=== PATIENT | female | born 1960 | race African-American/Black ===

== ENCOUNTER 2020-01-10 12:02 | Inpatient (IN) ==
[2020-01-10 12:34] LABS: Basophils % 0.3 % (0.0-0.8); Eosinophils % 0.1 % (0.00-10.9); Hematocrit 37.8 VOL% (35.7-47.0); Hemoglobin 12.3 GM/DL (12.0-16.0); Immature Granulocytes % 0.4 %; Immature Granulocytes Absolute 0.03 #; Lymphocytes # 0.5 10*3/uL (1.4-4.0); Lymphocytes % 7.4 % (21.3-54.2); Mean Corpuscular HGB Conc 32.5 GM/DL (32-36); Mean Corpuscular Volume 94.7 FL (87-102); Mean Platelet Volume 9.8 FL (9.6-12.0); Monocytes % 0.4 % (1.7-12.7); Neutrophils % 91.4 % (38.7-73.9); Platelet Count 240 T/CUMM (130-400); Red Blood Count 3.99 MC/CUMM (3.8-5.5); Red Cell Distribution Width 15.5 % (9.3-17.3); White Blood Count 6.8 T/CUMM (4-12)
[2020-01-10] MEDS ORDERED: ONDANSETRON 4 MG/2 ML VIAL IV STA (12:38)
[2020-01-10] MEDS ORDERED: SODIUM CHLORIDE 0.9% 1,000 ML IV STA (12:38)
[2020-01-10] MEDS ORDERED: HYDROmorphone 2 MG/1 ML VIAL IV STA (12:38)
[2020-01-10] MEDS ORDERED: MEROPENEM 2,000 MG in SODIUM CHLORIDE 0.9% 100 ML IV ONE (12:43)
[2020-01-10 12:48] LABS: Albumin 3.7 G/DL (3.4-5.0); Bilirubin,Total 0.8 MG/DL (0.2-1.0); Calcium 10.1 MG/DL (8.5-10.1); Osmolality,Calculated 273.8 MOS/KG (273-304); Total Protein 9.5 G/DL (6.4-8.3)
[2020-01-10] MEDS ORDERED: MEROPENEM 500 MG VIAL ONE (12:54)
[2020-01-10 13:25] LABS: Band Neutrophils 3 % (0-10); Lymphocytes 9 % (20-55); Segmented Neutrophils 87 % (50-85); Total Cells Counted 100
[2020-01-10 13:26] LABS: Hypochromasia Slight; Platelet Estimate Adequate
[2020-01-10] MEDS ORDERED: ACETAMINOPHEN 500 MG TABLET PO STA (13:59)
[2020-01-10] MEDS ORDERED: ACETAMINOPHEN 500 MG TABLET ONE (14:00)
[2020-01-10] MEDS ORDERED: SODIUM CHLORIDE 0.9% 1,000 ML IV SCH (14:00)
[2020-01-10 14:07] LABS: Bacteria,Urine Occasional /HPF (Few); Bilirubin,Urine Negative (Negative); Blood, Urine Small mg/dL (Negative); Glucose,Urine (UA) Negative (Negative); Ketones,Urine Negative (Negative); Mucus,Urine Occasional /LPF (Occasional); Nitrite,Urine Negative (Negative); Protein,Urine 30 MG/DL; RBC,Urine 3 /HPF (0-4); Squamous Epithelial Cell,Urine Occasional /HPF (0-10); Urine Appearance CLEAR (Clear); Urine Color Yellow (Yellow); Urine Specific Gravity 1.008 (1.001-1.035); Urine Urobilinogen < 2.0 EU/DL (0.2-1.0); WBC,Urine 32 /HPF (0-6)
[2020-01-10] MEDS ORDERED: AZTREONAM 1,000 MG VIAL ONE (14:07)
[2020-01-10 14:08] LABS: INR 1.1; PT Patient Result 11.9 SECS (9.8-11.9)
[2020-01-10] MEDS ORDERED: AZTREONAM 2,000 MG in SODIUM CHLORIDE 0.9% 100 ML IV ONE (14:30)
[2020-01-10] MEDS ORDERED: VANCOMYCIN INJ 2,500 MG in SODIUM CHLORIDE 0.9% 500 ML IV ONE (15:00)
[2020-01-10 15:18] LABS: ABG Base Excess -0.5 MMOL/L (-2.5-2.5); ABG HCO3 23.8 MMOL/L (20-26); ABG Oxygen Saturation 89.9 % (95-100); ABG PCO2 44.2 MM HG (35-48); ABG PH 7.363 (7.35-7.45); ABG PO2 63.9 MM HG (80-95); ABG TCO2 22.5 MMOL/L (23-27)
[2020-01-10] MEDS: SODIUM CHLORIDE 0.9% 1,000 ML IV STA ×2 (16:13→16:49)
[2020-01-10] MEDS ORDERED: SODIUM CHLORIDE 0.9% 1,800 ML IV ONE (16:25)
[2020-01-10] MEDS ORDERED: LEVOFLOXACIN INJ 500 MG in PREMIX 1 EACH IV ONE (16:29)
[2020-01-10] MEDS: LACTATED RINGERS 1,000 ML IV SCH (16:43)
[2020-01-10] MEDS ORDERED: GENTAMICIN INJ 160 MG in SODIUM CHLORIDE 0.9% 100 ML IV ONE (16:49)
[2020-01-10] MEDS ORDERED: GENTAMICIN 80 MG/2 ML VIAL ONE (16:58)
[2020-01-10] MEDS: HYDROCORTISONE 100 MG VIAL IV SCH (17:06)
[2020-01-10] MEDS ORDERED: WARFARIN 3 MG TABLET PO SCH (18:00)
[2020-01-10] MEDS ORDERED: PHENYLEPHRINE DRIP 40 MG/250 ML PREMIX IV ONE (18:32)
[2020-01-10] MEDS ORDERED: propofoL 200 MG/20 ML VIAL IV ONE (18:55)
[2020-01-10] MEDS ORDERED: LIDOCAINE 2% 5 ML VIAL ONE (18:55)
[2020-01-10] MEDS ORDERED: ETOMIDATE 40 MG/20 ML VIAL IV ONE (18:56)
[2020-01-10] MEDS ORDERED: PHENYLEPHRINE DRIP 20 MG/250 ML PREMIX IV ONE (18:56)
[2020-01-10] MEDS ORDERED: fentaNYL 100 MCG/2 ML VIAL ONE (18:56)
[2020-01-10] MEDS ORDERED: PHENYLEPHRINE 1 MG/10 ML SYRINGE IV ONE (18:56)
[2020-01-10] MEDS ORDERED: MIDAZOLAM 2 MG/2 ML VIAL ONE (18:56)
[2020-01-10] MEDS ORDERED: SEVOFLURANE 1 UNIT/15 MINUTE INH ONE (18:56)
[2020-01-10] MEDS ORDERED: SUCCINYLCHOLINE 200 MG/10 ML VIAL ONE (18:57)
[2020-01-10] MEDS ORDERED: ROCURONIUM 100 MG/10 ML VIAL IV ONE (18:57)
[2020-01-10] MEDS ORDERED: LACTATED RINGERS 1,000 ML IV ONE ×2 (18:57→22:20)
[2020-01-10] MEDS: PHENYLEPHRINE DRIP 40 MG/250 ML PREMIX IV PRN ×2 (19:00→22:50)
[2020-01-10] MEDS ORDERED: fentaNYL INJ 1,250 MCG in SODIUM CHLORIDE 0.9% 225 ML IV PRN (19:15)
[2020-01-10 19:39] LABS: ABG Base Excess -3.9 MMOL/L (-2.5-2.5); ABG Oxygen Saturation 98.4 % (95-100); ABG PH 7.326 (7.35-7.45); ABG PO2 152.3 MM HG (80-95); ABG TCO2 23.3 MMOL/L (23-27); Allen Test Positive; Pt O2 Delivery Device Ventilator
[2020-01-10] MEDS: NOREPINEPHRINE 8 MG in SODIUM CHLORIDE 0.9% 242 ML IV PRN (19:50)
[2020-01-10] MEDS ORDERED: AZTREONAM 2,000 MG in SODIUM CHLORIDE 0.9% 100 ML IV SCH (20:00)
[2020-01-10] MEDS ORDERED: MIDAZOLAM 2 MG/2 ML VIAL IV ONE ×2 (21:48→21:56)
[2020-01-10] MEDS ORDERED: MIDAZOLAM 10 MG/2 ML VIAL ONE (21:49)
[2020-01-10] MEDS: allopurinoL 100 MG TABLET PO SCH (23:24)
[2020-01-10] MEDS: POTASSIUM CHLORIDE 20 MEQ TABLET PO SCH (23:24)
[2020-01-11] MEDS: MEROPENEM 500 MG in SODIUM CHLORIDE 0.9% 100 ML IV SCH ×4 (00:20→17:10)
[2020-01-11] MEDS: LACTATED RINGERS 1,000 ML IV SCH ×4 (00:30→17:11)
[2020-01-11] MEDS: fentaNYL INJ 2,500 MCG in SODIUM CHLORIDE 0.9% 450 ML IV PRN ×3 (00:37→19:01)
[2020-01-11] MEDS: HYDROCORTISONE 100 MG VIAL IV SCH ×3 (01:23→16:45)
[2020-01-11] MEDS: PHENYLEPHRINE DRIP 40 MG/250 ML PREMIX IV PRN ×2 (02:55→11:01)
[2020-01-11 03:29] LABS: ABG Base Excess -4.1 MMOL/L (-2.5-2.5); ABG HCO3 21.1 MMOL/L (20-26); ABG Oxygen Saturation 99.6 % (95-100); ABG PCO2 55.7 MM HG (35-48); ABG PH 7.244 (7.35-7.45); Allen Test Positive; Pt O2 Delivery Device Ventilator
[2020-01-11] MEDS ORDERED: VANCOMYCIN INJ 2,000 MG in SODIUM CHLORIDE 0.9% 500 ML IV SCH (04:00)
[2020-01-11] MEDS: NOREPINEPHRINE 8 MG in SODIUM CHLORIDE 0.9% 242 ML IV PRN ×4 (04:50→21:31)
[2020-01-11 04:59] LABS: Basophils # 0.1 10*3/uL (0.0-0.2); Basophils % 0.3 % (0.0-0.8); Hematocrit 34.8 VOL% (35.7-47.0); Hemoglobin 11.5 GM/DL (12.0-16.0); Immature Granulocytes % 4.1 %; Immature Granulocytes Absolute 1.62 #; Lymphocytes # 0.7 10*3/uL (1.4-4.0); Lymphocytes % 1.8 % (21.3-54.2); Mean Corpuscular Volume 95.6 FL (87-102); Monocytes % 4.7 % (1.7-12.7); Neutrophils % 89.1 % (38.7-73.9); Platelet Count 204 T/CUMM (130-400); Red Blood Count 3.64 MC/CUMM (3.8-5.5); Red Cell Distribution Width 15.6 % (9.3-17.3); White Blood Count 39.8 T/CUMM (4-12)
[2020-01-11 05:09] LABS: INR 1.1; PT Patient Result 11.9 SECS (9.8-11.9)
[2020-01-11 05:19] LABS: Band Neutrophils 6 % (0-10); Lymphocytes 2 % (20-55); Myelocytes 1 %; Platelet Estimate Adequate; Segmented Neutrophils 84 % (50-85); Total Cells Counted 100
[2020-01-11 05:20] LABS: Hypochromasia 1+
[2020-01-11 05:24] LABS: Albumin 2.9 G/DL (3.4-5.0); Bilirubin,Total 0.8 MG/DL (0.2-1.0); Calcium 8.6 MG/DL (8.5-10.1); Osmolality,Calculated 283.3 MOS/KG (273-304)
[2020-01-11] MEDS ORDERED: PANTOPRAZOLE 40 MG VIAL IV ONE (08:43)
[2020-01-11] MEDS: ASPIRIN CHEW 81 MG TABLET PO SCH (08:44)
[2020-01-11] MEDS: FLUDROCORTISONE 0.1 MG TABLET PO SCH (08:45)
[2020-01-11] MEDS: CALCIUM (CARBONATE) 500 MG TABLET PO SCH (08:49)
[2020-01-11] MEDS: ASCORBIC ACID 500 MG TABLET PO SCH (08:49)
[2020-01-11] MEDS: CHOLECALCIFEROL 5,000 UNIT TABLET PO SCH (08:49)
[2020-01-11] MEDS: POTASSIUM CHLORIDE 20 MEQ TABLET PO SCH ×2 (08:49→21:16)
[2020-01-11] MEDS: allopurinoL 100 MG TABLET PO SCH ×2 (08:50→21:16)
[2020-01-11] MEDS: DULoxetine 30 MG CAPSULE PO SCH (08:50)
[2020-01-11] MEDS: PANTOPRAZOLE 40 MG VIAL IV SCH (08:51)
[2020-01-11] MEDS: TRIAMTERENE/HCTZ 37.5-25 MG CAPSULE PO SCH (08:52)
[2020-01-11] MEDS: SPIRONOLACTONE 50 MG TABLET PO SCH (08:52)
[2020-01-11] MEDS ORDERED: PANTOPRAZOLE 40 MG TABLET PO SCH (09:00)
[2020-01-12] MEDS: LACTATED RINGERS 1,000 ML IV SCH ×3 (00:34→16:31)
[2020-01-12] MEDS: MEROPENEM 500 MG in SODIUM CHLORIDE 0.9% 100 ML IV SCH ×4 (00:42→17:55)
[2020-01-12] MEDS: HYDROCORTISONE 100 MG VIAL IV SCH ×3 (00:43→16:30)
[2020-01-12] MEDS: fentaNYL INJ 2,500 MCG in SODIUM CHLORIDE 0.9% 450 ML IV PRN ×2 (03:01→16:29)
[2020-01-12 04:58] LABS: ABG Base Excess -0.9 MMOL/L (-2.5-2.5); ABG HCO3 23.5 MMOL/L (20-26); ABG Oxygen Saturation 98.3 % (95-100); ABG PH 7.409 (7.35-7.45); ABG PO2 134.2 MM HG (80-95); ABG TCO2 24.7 MMOL/L (23-27); Allen Test Positive; Pt O2 Delivery Device Ventilator
[2020-01-12 05:21] LABS: Basophils # 0.1 10*3/uL (0.0-0.2); Basophils % 0.3 % (0.0-0.8); Hematocrit 30.7 VOL% (35.7-47.0); Hemoglobin 10.4 GM/DL (12.0-16.0); Immature Granulocytes % 11.7 %; Immature Granulocytes Absolute 4.53 #; Lymphocytes # 0.8 10*3/uL (1.4-4.0); Mean Corpuscular HGB Conc 33.9 GM/DL (32-36); Mean Corpuscular Volume 94.2 FL (87-102); Mean Platelet Volume 10.6 FL (9.6-12.0); Platelet Count 164 T/CUMM (130-400); Red Blood Count 3.26 MC/CUMM (3.8-5.5); Red Cell Distribution Width 15.7 % (9.3-17.3); White Blood Count 38.8 T/CUMM (4-12)
[2020-01-12 05:37] LABS: Albumin 2.4 G/DL (3.4-5.0); Bilirubin,Total 0.9 MG/DL (0.2-1.0); Calcium 9.4 MG/DL (8.5-10.1); Osmolality,Calculated 294.3 MOS/KG (273-304); Total Protein 7.2 G/DL (6.4-8.3)
[2020-01-12 05:44] LABS: Band Neutrophils 7 % (0-10); Hypochromasia 1+; Lymphocytes 4 % (20-55); Microcytosis Slight; Platelet Estimate Adequate; Segmented Neutrophils 87 % (50-85); Total Cells Counted 100
[2020-01-12] MEDS: NOREPINEPHRINE 8 MG in SODIUM CHLORIDE 0.9% 242 ML IV PRN (07:58)
[2020-01-12] MEDS: TRIAMTERENE/HCTZ 37.5-25 MG CAPSULE PO SCH (08:34)
[2020-01-12] MEDS: DULoxetine 30 MG CAPSULE PO SCH (08:34)
[2020-01-12] MEDS: CHOLECALCIFEROL 5,000 UNIT TABLET PO SCH (08:34)
[2020-01-12] MEDS: POTASSIUM CHLORIDE 20 MEQ TABLET PO SCH ×2 (08:35→20:56)
[2020-01-12] MEDS: allopurinoL 100 MG TABLET PO SCH ×2 (08:35→20:55)
[2020-01-12] MEDS: FLUDROCORTISONE 0.1 MG TABLET PO SCH (08:35)
[2020-01-12] MEDS: SPIRONOLACTONE 50 MG TABLET PO SCH (08:36)
[2020-01-12] MEDS: CALCIUM (CARBONATE) 500 MG TABLET PO SCH (08:36)
[2020-01-12] MEDS: ASCORBIC ACID 500 MG TABLET PO SCH (08:36)
[2020-01-12] MEDS: PANTOPRAZOLE 40 MG VIAL IV SCH (08:38)
[2020-01-12] MEDS: ASPIRIN CHEW 81 MG TABLET PO SCH (08:47)
[2020-01-12] MEDS: ENOXAPARIN 40 MG/0.4 ML SYRINGE SUBCUT SCH (10:10)
[2020-01-12] MEDS: PHENOL 1.4% THROAT SPRAY 177 ML BOTTLE PO PRN (10:10)
[2020-01-12] MEDS ORDERED: DEXTROSE 50% 25 GM/50 ML VIAL IV PRN (12:28)
[2020-01-12] MEDS ORDERED: GLUCAGON 1 MG VIAL IM PRN (12:28)
[2020-01-12] MEDS: INSULIN REGULAR 100 UNIT/ML SUBCUT SCH (18:08)
[2020-01-13] MEDS: LACTATED RINGERS 1,000 ML IV SCH ×3 (00:01→13:00)
[2020-01-13] MEDS: INSULIN REGULAR 100 UNIT/ML SUBCUT SCH ×4 (00:13→18:00)
[2020-01-13] MEDS: MEROPENEM 500 MG in SODIUM CHLORIDE 0.9% 100 ML IV SCH ×4 (00:14→17:55)
[2020-01-13] MEDS: HYDROCORTISONE 100 MG VIAL IV SCH ×4 (01:12→16:15)
[2020-01-13 04:11] LABS: Basophils # 0.1 10*3/uL (0.0-0.2); Basophils % 0.3 % (0.0-0.8); Hemoglobin 9.7 GM/DL (12.0-16.0); Immature Granulocytes % 4.9 %; Immature Granulocytes Absolute 1.94 #; Lymphocytes # 1.1 10*3/uL (1.4-4.0); Lymphocytes % 2.9 % (21.3-54.2); Mean Corpuscular HGB Conc 33.4 GM/DL (32-36); Mean Corpuscular Volume 93.5 FL (87-102); Mean Platelet Volume 10.5 FL (9.6-12.0); Monocytes % 2.1 % (1.7-12.7); Neutrophils % 89.8 % (38.7-73.9); Platelet Count 146 T/CUMM (130-400); Red Cell Distribution Width 15.6 % (9.3-17.3); White Blood Count 39.2 T/CUMM (4-12)
[2020-01-13 04:32] LABS: Albumin 2.2 G/DL (3.4-5.0); Bilirubin,Total 0.4 MG/DL (0.2-1.0); Calcium 9.6 MG/DL (8.5-10.1); Osmolality,Calculated 299.1 MOS/KG (273-304); Total Protein 6.9 G/DL (6.4-8.3)
[2020-01-13 04:34] LABS: Prealbumin 7.3 MG/DL (20-40)
[2020-01-13 04:44] LABS: Anisocytosis Slight; Band Neutrophils 3 % (0-10); Eosinophils 1 % (0-10); Lymphocytes 2 % (20-55); Macrocytosis Slight; Platelet Estimate Adequate; Segmented Neutrophils 94 % (50-85); Total Cells Counted 100
[2020-01-13 04:45] LABS: ABG Base Excess 2.8 MMOL/L (-2.5-2.5); ABG HCO3 26.9 MMOL/L (20-26); ABG Oxygen Saturation 98.5 % (95-100); ABG PCO2 40.4 MM HG (35-48); ABG PH 7.436 (7.35-7.45); ABG TCO2 24.6 MMOL/L (23-27); Allen Test Positive; Pt O2 Delivery Device Ventilator
[2020-01-13] MEDS: fentaNYL INJ 2,500 MCG in SODIUM CHLORIDE 0.9% 450 ML IV PRN (08:05)
[2020-01-13] MEDS: POTASSIUM CHLORIDE 20 MEQ TABLET PO SCH (09:00)
[2020-01-13] MEDS: allopurinoL 100 MG TABLET PO SCH ×2 (09:00→20:44)
[2020-01-13] MEDS: ENOXAPARIN 40 MG/0.4 ML SYRINGE SUBCUT SCH (09:10)
[2020-01-13] MEDS: PANTOPRAZOLE 40 MG VIAL IV SCH (09:10)
[2020-01-13] MEDS: PHENOL 1.4% THROAT SPRAY 177 ML BOTTLE PO PRN (12:30)
[2020-01-13] MEDS: ASPIRIN CHEW 81 MG TABLET PO SCH (13:00)
[2020-01-13] MEDS: CHOLECALCIFEROL 5,000 UNIT TABLET PO SCH (13:00)
[2020-01-13] MEDS: CALCIUM (CARBONATE) 500 MG TABLET PO SCH (13:00)
[2020-01-13] MEDS: ASCORBIC ACID 500 MG TABLET PO SCH (13:00)
[2020-01-13] MEDS: DULoxetine 30 MG CAPSULE PO SCH (13:00)
[2020-01-13] MEDS: FLUDROCORTISONE 0.1 MG TABLET PO SCH (13:00)
[2020-01-13] MEDS: BENZONATATE 100 MG CAPSULE PO SCH ×2 (14:50→20:44)
[2020-01-13] MEDS: POTASSIUM CHLORIDE 20 MEQ/15 ML UDCUP PER TUBE SCH (20:44)
[2020-01-14] MEDS: MEROPENEM 500 MG in SODIUM CHLORIDE 0.9% 100 ML IV SCH ×4 (01:16→17:55)
[2020-01-14] MEDS: INSULIN REGULAR 100 UNIT/ML SUBCUT SCH ×3 (01:16→12:00)
[2020-01-14] MEDS: HYDROCORTISONE 100 MG VIAL IV SCH ×3 (02:30→17:55)
[2020-01-14 03:13] LABS: ABG Base Excess 4.5 MMOL/L (-2.5-2.5); ABG HCO3 28.5 MMOL/L (20-26); ABG Oxygen Saturation 99.3 % (95-100); ABG PCO2 37.6 MM HG (35-48); ABG PH 7.482 (7.35-7.45); ABG TCO2 25.4 MMOL/L (23-27)
[2020-01-14 04:42] LABS: Basophils # 0.1 10*3/uL (0.0-0.2); Basophils % 0.3 % (0.0-0.8); Eosinophils # 0.1 10*3/uL (0.0-0.87); Eosinophils % 0.3 % (0.00-10.9); Hemoglobin 9.9 GM/DL (12.0-16.0); Immature Granulocytes Absolute 0.25 #; Lymphocytes % 7.8 % (21.3-54.2); Mean Corpuscular Volume 92.9 FL (87-102); Monocytes % 4.8 % (1.7-12.7); NRBC # 0.02 10*3/uL; Neutrophils % 85.8 % (38.7-73.9); Platelet Count 152 T/CUMM (130-400); Red Blood Count 3.23 MC/CUMM (3.8-5.5); Red Cell Distribution Width 15.2 % (9.3-17.3); White Blood Count 26.1 T/CUMM (4-12)
[2020-01-14 05:18] LABS: Band Neutrophils 6 % (0-10); Lymphocytes 12 % (20-55); Nucleated Red Blood Cells 1 (0-5); Platelet Estimate Normal; Segmented Neutrophils 81 % (50-85); Total Cells Counted 100
[2020-01-14 05:20] LABS: Albumin 2.2 G/DL (3.4-5.0); Bilirubin,Total 0.4 MG/DL (0.2-1.0); Calcium 9.5 MG/DL (8.5-10.1); Osmolality,Calculated 302.9 MOS/KG (273-304); Total Protein 6.9 G/DL (6.4-8.3)
[2020-01-14] MEDS: LACTATED RINGERS 1,000 ML IV SCH (07:00)
[2020-01-14] MEDS: PANTOPRAZOLE 40 MG VIAL IV SCH (08:15)
[2020-01-14] MEDS: SODIUM CHLORIDE 0.45% 1,000 ML IV SCH ×2 (08:15→23:44)
[2020-01-14] MEDS: CHOLECALCIFEROL 5,000 UNIT TABLET PO SCH (08:20)
[2020-01-14] MEDS: BENZONATATE 100 MG CAPSULE PO SCH ×3 (08:20→22:17)
[2020-01-14] MEDS: CALCIUM (CARBONATE) 500 MG TABLET PO SCH (08:20)
[2020-01-14] MEDS: POTASSIUM CHLORIDE 20 MEQ/15 ML UDCUP PER TUBE SCH (08:20)
[2020-01-14] MEDS: ASPIRIN CHEW 81 MG TABLET PO SCH (08:20)
[2020-01-14] MEDS: allopurinoL 100 MG TABLET PO SCH ×2 (08:20→22:16)
[2020-01-14] MEDS: ASCORBIC ACID 500 MG TABLET PO SCH (08:20)
[2020-01-14] MEDS: DULoxetine 30 MG CAPSULE PO SCH (08:20)
[2020-01-14] MEDS: FLUDROCORTISONE 0.1 MG TABLET PO SCH (08:20)
[2020-01-14] MEDS: ENOXAPARIN 40 MG/0.4 ML SYRINGE SUBCUT SCH (08:25)
[2020-01-14 10:01] LABS: ABG Base Excess 3.1 MMOL/L (-2.5-2.5); ABG HCO3 29.3 MMOL/L (20-26); ABG Oxygen Saturation 97.2 % (95-100); ABG PCO2 52.4 MM HG (35-48); ABG PH 7.365 (7.35-7.45); ABG PO2 108.4 MM HG (80-95); ABG TCO2 30.9 MMOL/L (23-27)
[2020-01-14] MEDS: ALBUTEROL/IPRATROPIUM 3 ML NEB RESP TX SCH ×4 (10:21→23:58)
[2020-01-14 10:41] LABS: INR 1.2; PT Patient Result 12.4 SECS (9.8-11.9)
[2020-01-14 11:35] LABS: ABG Base Excess 3.3 MMOL/L (-2.5-2.5); ABG HCO3 27.3 MMOL/L (20-26); ABG Oxygen Saturation 94.2 % (95-100); ABG PCO2 54.7 MM HG (35-48); ABG PH 7.348 (7.35-7.45); ABG PO2 78.9 MM HG (80-95); ABG TCO2 27.3 MMOL/L (23-27)
[2020-01-14] MEDS: WARFARIN 7.5 MG TABLET PO SCH (17:55)
[2020-01-14] MEDS: POTASSIUM CHLORIDE 20 MEQ TABLET PO SCH (22:17)
[2020-01-15] MEDS: HYDROCORTISONE 100 MG VIAL IV SCH ×3 (00:59→20:32)
[2020-01-15] MEDS: MEROPENEM 500 MG in SODIUM CHLORIDE 0.9% 100 ML IV SCH ×4 (00:59→18:12)
[2020-01-15] MEDS: ALBUTEROL/IPRATROPIUM 3 ML NEB RESP TX SCH ×4 (03:33→19:58)
[2020-01-15 04:54] LABS: Basophils # 0.1 10*3/uL (0.0-0.2); Basophils % 0.4 % (0.0-0.8); Eosinophils # 0.1 10*3/uL (0.0-0.87); Eosinophils % 0.4 % (0.00-10.9); Hematocrit 31.2 VOL% (35.7-47.0); Hemoglobin 10.1 GM/DL (12.0-16.0); Immature Granulocytes % 5.5 %; Immature Granulocytes Absolute 0.93 #; Lymphocytes % 11.7 % (21.3-54.2); Mean Corpuscular HGB Conc 32.4 GM/DL (32-36); Mean Corpuscular Volume 94.8 FL (87-102); Mean Platelet Volume 11.6 FL (9.6-12.0); Monocytes % 6.2 % (1.7-12.7); Neutrophils % 75.8 % (38.7-73.9); Platelet Count 152 T/CUMM (130-400); Red Blood Count 3.29 MC/CUMM (3.8-5.5); Red Cell Distribution Width 15.2 % (9.3-17.3); White Blood Count 16.8 T/CUMM (4-12)
[2020-01-15 05:14] LABS: Eosinophils 2 % (0-10); Lymphocytes 13 % (20-55); Segmented Neutrophils 81 % (50-85); Total Cells Counted 100
[2020-01-15 05:15] LABS: Hypochromasia 1+; Microcytosis Slight; Platelet Estimate Adequate
[2020-01-15 05:23] LABS: Albumin 2.2 G/DL (3.4-5.0); Bilirubin,Total 0.8 MG/DL (0.2-1.0); Calcium 9.2 MG/DL (8.5-10.1); Osmolality,Calculated 294.4 MOS/KG (273-304)
[2020-01-15 05:45] LABS: INR 1.2; PT Patient Result 12.6 SECS (9.8-11.9)
[2020-01-15] MEDS: PANTOPRAZOLE 40 MG VIAL IV SCH (08:38)
[2020-01-15] MEDS: allopurinoL 100 MG TABLET PO SCH ×2 (08:40→20:32)
[2020-01-15] MEDS: BENZONATATE 100 MG CAPSULE PO SCH ×3 (08:40→20:32)
[2020-01-15] MEDS: ASCORBIC ACID 500 MG TABLET PO SCH (08:40)
[2020-01-15] MEDS: ASPIRIN CHEW 81 MG TABLET PO SCH (08:40)
[2020-01-15] MEDS: DULoxetine 30 MG CAPSULE PO SCH (08:41)
[2020-01-15] MEDS: POTASSIUM CHLORIDE 20 MEQ TABLET PO SCH ×2 (08:41→20:33)
[2020-01-15] MEDS: FLUDROCORTISONE 0.1 MG TABLET PO SCH (08:41)
[2020-01-15] MEDS: CALCIUM (CARBONATE) 500 MG TABLET PO SCH (08:41)
[2020-01-15] MEDS: CHOLECALCIFEROL 5,000 UNIT TABLET PO SCH (08:43)
[2020-01-15] MEDS ORDERED: ALBUTEROL/IPRATROPIUM 3 ML NEB RESP TX PRN (09:08)
[2020-01-15] MEDS: ENOXAPARIN 40 MG/0.4 ML SYRINGE SUBCUT SCH (11:39)
[2020-01-15] MEDS: SODIUM CHLORIDE 0.45% 1,000 ML IV SCH ×2 (11:53→14:30)
[2020-01-15] MEDS: LIDOCAINE 2% TOP JELLY 5 ML TUBE TOP SCH ×3 (12:15→20:35)
[2020-01-15] MEDS: WARFARIN 7.5 MG TABLET PO SCH (18:12)
[2020-01-16] MEDS: SODIUM CHLORIDE 0.45% 1,000 ML IV SCH (00:30)
[2020-01-16] MEDS: MEROPENEM 500 MG in SODIUM CHLORIDE 0.9% 100 ML IV SCH ×4 (00:30→17:08)
[2020-01-16] MEDS: ACETAMINOPHEN 325 MG TABLET PO PRN (00:32)
[2020-01-16] MEDS: ALBUTEROL/IPRATROPIUM 3 ML NEB RESP TX SCH ×4 (01:30→20:15)
[2020-01-16 05:10] LABS: Basophils # 0.1 10*3/uL (0.0-0.2); Basophils % 0.5 % (0.0-0.8); Eosinophils # 0.3 10*3/uL (0.0-0.87); Eosinophils % 2.6 % (0.00-10.9); Hematocrit 29.5 VOL% (35.7-47.0); Hemoglobin 10.1 GM/DL (12.0-16.0); Immature Granulocytes % 11.7 %; Immature Granulocytes Absolute 1.38 #; Lymphocytes # 2.4 10*3/uL (1.4-4.0); Lymphocytes % 19.9 % (21.3-54.2); Mean Corpuscular HGB Conc 34.2 GM/DL (32-36); Mean Corpuscular Volume 90.5 FL (87-102); Monocytes % 9.5 % (1.7-12.7); NRBC # 0.02 10*3/uL; Neutrophils % 55.8 % (38.7-73.9); Platelet Count 167 T/CUMM (130-400); Red Blood Count 3.26 MC/CUMM (3.8-5.5); Red Cell Distribution Width 14.8 % (9.3-17.3); White Blood Count 11.8 T/CUMM (4-12)
[2020-01-16 05:16] LABS: INR 1.7; PT Patient Result 17.8 SECS (9.8-11.9)
[2020-01-16 05:35] LABS: Alanine Aminotransferase 15 U/L (13-56); Albumin 2.2 G/DL (3.4-5.0); Alkaline Phosphatase 102 U/L (45-117); Aspartate Amino Transferase 12 U/L (0-37); Bilirubin,Total < 0.39 MG/DL (0.2-1.0); Blood Urea Nitrogen 13 MG/DL (7-18); Calcium 8.9 MG/DL (8.5-10.1); Estimated Glom Filtration Rate 195 ML/MIN; Glucose 87 MG/DL (74-106); Osmolality,Calculated 284.8 MOS/KG (273-304); Total Protein 6.6 G/DL (6.4-8.3)
[2020-01-16 07:22] LABS: Anisocytosis Slight; Band Neutrophils 7 % (0-10); Eosinophils 1 % (0-10); Lymphocytes 28 % (20-55); Metamyelocytes 3 %; Nucleated Red Blood Cells 1 (0-5); Platelet Estimate Normal; Segmented Neutrophils 53 % (50-85); Total Cells Counted 100
[2020-01-16 07:23] LABS: Macrocytosis Slight
[2020-01-16] MEDS ORDERED: POTASSIUM CHLORIDE 20 MEQ TABLET PO ONE (07:57)
[2020-01-16] MEDS: POTASSIUM CHLORIDE 20 MEQ TABLET PO SCH ×2 (08:22→21:19)
[2020-01-16] MEDS: FLUDROCORTISONE 0.1 MG TABLET PO SCH (08:22)
[2020-01-16] MEDS: BENZONATATE 100 MG CAPSULE PO SCH ×3 (08:22→21:19)
[2020-01-16] MEDS: CALCIUM (CARBONATE) 500 MG TABLET PO SCH (08:22)
[2020-01-16] MEDS: DULoxetine 30 MG CAPSULE PO SCH (08:22)
[2020-01-16] MEDS: ASCORBIC ACID 500 MG TABLET PO SCH (08:22)
[2020-01-16] MEDS: allopurinoL 100 MG TABLET PO SCH ×2 (08:23→21:19)
[2020-01-16] MEDS: ASPIRIN CHEW 81 MG TABLET PO SCH (08:23)
[2020-01-16] MEDS: CHOLECALCIFEROL 5,000 UNIT TABLET PO SCH (08:23)
[2020-01-16] MEDS: PANTOPRAZOLE 40 MG VIAL IV SCH (08:24)
[2020-01-16] MEDS: HYDROCORTISONE 100 MG VIAL IV SCH ×2 (08:24→21:20)
[2020-01-16] MEDS: LIDOCAINE 2% TOP JELLY 5 ML TUBE TOP SCH ×4 (08:27→21:21)
[2020-01-16] MEDS: PANTOPRAZOLE 40 MG TABLET PO SCH (08:30)
[2020-01-16] MEDS: ENOXAPARIN 40 MG/0.4 ML SYRINGE SUBCUT SCH (09:34)
[2020-01-16] MEDS: FUROSEMIDE 40 MG/4 ML VIAL IV SCH (17:06)
[2020-01-16] MEDS: WARFARIN 7.5 MG TABLET PO SCH (17:08)
[2020-01-17] MEDS: MEROPENEM 500 MG in SODIUM CHLORIDE 0.9% 100 ML IV SCH ×5 (00:01→23:25)
[2020-01-17] MEDS: ALBUTEROL/IPRATROPIUM 3 ML NEB RESP TX SCH ×4 (00:54→20:24)
[2020-01-17 06:38] LABS: Basophils # 0.1 10*3/uL (0.0-0.2); Basophils % 0.5 % (0.0-0.8); Eosinophils # 0.3 10*3/uL (0.0-0.87); Eosinophils % 2.4 % (0.00-10.9); Hematocrit 29.5 VOL% (35.7-47.0); Immature Granulocytes % 8.7 %; Immature Granulocytes Absolute 1.04 #; Lymphocytes # 2.9 10*3/uL (1.4-4.0); Lymphocytes % 23.9 % (21.3-54.2); Mean Corpuscular HGB Conc 33.9 GM/DL (32-36); Mean Corpuscular Volume 91.3 FL (87-102); Mean Platelet Volume 10.9 FL (9.6-12.0); Monocytes % 9.9 % (1.7-12.7); Neutrophils % 54.6 % (38.7-73.9); Platelet Count 197 T/CUMM (130-400); Red Blood Count 3.23 MC/CUMM (3.8-5.5); Red Cell Distribution Width 14.6 % (9.3-17.3); White Blood Count 11.9 T/CUMM (4-12)
[2020-01-17 07:00] LABS: Albumin 2.3 G/DL (3.4-5.0); Total Protein 6.7 G/DL (6.4-8.3)
[2020-01-17 07:15] LABS: Osmolality,Calculated 280.1 MOS/KG (273-304)
[2020-01-17] MEDS ORDERED: POTASSIUM CHLORIDE 20 MEQ TABLET PO ONE (07:56)
[2020-01-17 08:05] LABS: Band Neutrophils 5 % (0-10); Eosinophils 5 % (0-10); Lymphocytes 34 % (20-55); Nucleated Red Blood Cells 2 (0-5); Platelet Estimate Normal; Segmented Neutrophils 50 % (50-85); Total Cells Counted 100
[2020-01-17 08:06] LABS: Anisocytosis 1+; Macrocytosis Slight
[2020-01-17] MEDS ORDERED: POTASSIUM CHLORIDE 20 MEQ TABLET PO PRN (08:11)
[2020-01-17 08:16] LABS: INR 2.1; PT Patient Result 21.6 SECS (9.8-11.9)
[2020-01-17] MEDS: LIDOCAINE 2% TOP JELLY 5 ML TUBE TOP SCH ×4 (08:32→20:04)
[2020-01-17] MEDS ORDERED: MAGNESIUM HYDROXIDE SUSP 30 ML UDCUP PO PRN (08:55)
[2020-01-17] MEDS: CHOLECALCIFEROL 5,000 UNIT TABLET PO SCH (10:26)
[2020-01-17] MEDS: BENZONATATE 100 MG CAPSULE PO SCH ×3 (10:26→20:51)
[2020-01-17] MEDS: ASPIRIN CHEW 81 MG TABLET PO SCH (10:26)
[2020-01-17] MEDS: CALCIUM (CARBONATE) 500 MG TABLET PO SCH (10:26)
[2020-01-17] MEDS: allopurinoL 100 MG TABLET PO SCH ×2 (10:27→20:51)
[2020-01-17] MEDS: ASCORBIC ACID 500 MG TABLET PO SCH (10:27)
[2020-01-17] MEDS: FLUDROCORTISONE 0.1 MG TABLET PO SCH (10:27)
[2020-01-17] MEDS: POTASSIUM CHLORIDE 20 MEQ TABLET PO SCH ×2 (10:27→20:51)
[2020-01-17] MEDS: DULoxetine 30 MG CAPSULE PO SCH (10:27)
[2020-01-17] MEDS: PANTOPRAZOLE 40 MG TABLET PO SCH (10:27)
[2020-01-17] MEDS: HYDROCORTISONE 100 MG VIAL IV SCH (10:28)
[2020-01-17] MEDS: FUROSEMIDE 40 MG/4 ML VIAL IV SCH (10:28)
[2020-01-17] MEDS: WARFARIN 7.5 MG TABLET PO SCH (18:16)
[2020-01-18] MEDS: ALBUTEROL/IPRATROPIUM 3 ML NEB RESP TX SCH ×4 (00:44→19:49)
[2020-01-18] MEDS: ACETYLCYSTEINE 20% 800 MG/4 ML VIAL RESP TX SCH ×3 (00:44→14:20)
[2020-01-18] MEDS: MEROPENEM 500 MG in SODIUM CHLORIDE 0.9% 100 ML IV SCH ×3 (06:16→17:15)
[2020-01-18 06:53] LABS: Basophils # 0.1 10*3/uL (0.0-0.2); Basophils % 0.6 % (0.0-0.8); Eosinophils # 0.4 10*3/uL (0.0-0.87); Eosinophils % 3.3 % (0.00-10.9); Hematocrit 31.1 VOL% (35.7-47.0); Hemoglobin 10.4 GM/DL (12.0-16.0); Immature Granulocytes % 5.7 %; Immature Granulocytes Absolute 0.61 #; Lymphocytes % 27.6 % (21.3-54.2); Mean Corpuscular HGB Conc 33.4 GM/DL (32-36); Mean Corpuscular Volume 90.9 FL (87-102); Mean Platelet Volume 11.2 FL (9.6-12.0); Monocytes % 9.3 % (1.7-12.7); Neutrophils % 53.5 % (38.7-73.9); Platelet Count 202 T/CUMM (130-400); Red Blood Count 3.42 MC/CUMM (3.8-5.5); White Blood Count 10.7 T/CUMM (4-12)
[2020-01-18 06:59] LABS: INR 2.1; PT Patient Result 21.5 SECS (9.8-11.9)
[2020-01-18 07:16] LABS: Albumin 2.4 G/DL (3.4-5.0); Bilirubin,Total 1.4 MG/DL (0.2-1.0); Osmolality,Calculated 280.1 MOS/KG (273-304); Total Protein 6.8 G/DL (6.4-8.3)
[2020-01-18 07:24] LABS: Band Neutrophils 3 % (0-10); Eosinophils 3 % (0-10); Lymphocytes 34 % (20-55); Platelet Estimate Normal; Segmented Neutrophils 52 % (50-85); Total Cells Counted 100
[2020-01-18 07:25] LABS: Anisocytosis Slight; Macrocytosis Slight; Target Cells Few
[2020-01-18] MEDS: FUROSEMIDE 40 MG/4 ML VIAL IV SCH (09:50)
[2020-01-18] MEDS: DULoxetine 30 MG CAPSULE PO SCH (09:55)
[2020-01-18] MEDS: POTASSIUM CHLORIDE 20 MEQ TABLET PO SCH ×5 (09:55→21:04)
[2020-01-18] MEDS: HYDROCORTISONE 100 MG VIAL IV SCH (09:55)
[2020-01-18] MEDS: FLUDROCORTISONE 0.1 MG TABLET PO SCH (10:09)
[2020-01-18] MEDS: BENZONATATE 100 MG CAPSULE PO SCH ×3 (10:10→21:04)
[2020-01-18] MEDS: allopurinoL 100 MG TABLET PO SCH ×2 (10:10→21:05)
[2020-01-18] MEDS: CHOLECALCIFEROL 5,000 UNIT TABLET PO SCH (10:10)
[2020-01-18] MEDS: ASCORBIC ACID 500 MG TABLET PO SCH (10:11)
[2020-01-18] MEDS: CALCIUM (CARBONATE) 500 MG TABLET PO SCH (10:11)
[2020-01-18] MEDS: PANTOPRAZOLE 40 MG TABLET PO SCH (10:13)
[2020-01-18] MEDS: ASPIRIN CHEW 81 MG TABLET PO SCH (10:13)
[2020-01-18] MEDS: SPIRONOLACTONE 50 MG TABLET PO SCH (10:15)
[2020-01-18] MEDS: LIDOCAINE 2% TOP JELLY 5 ML TUBE TOP SCH ×4 (10:23→21:05)
[2020-01-18] MEDS: ACETAMINOPHEN 325 MG TABLET PO PRN ×2 (11:35→21:13)
[2020-01-18] MEDS ORDERED: ZINC OXIDE PASTE 113 GM TUBE TOP PRN (11:47)
[2020-01-19] MEDS: ALBUTEROL/IPRATROPIUM 3 ML NEB RESP TX SCH ×5 (00:25→23:50)
[2020-01-19] MEDS: ACETYLCYSTEINE 20% 800 MG/4 ML VIAL RESP TX SCH ×2 (00:25→07:45)
[2020-01-19] MEDS: MEROPENEM 500 MG in SODIUM CHLORIDE 0.9% 100 ML IV SCH ×4 (01:13→18:55)
[2020-01-19 05:49] LABS: Basophils # 0.1 10*3/uL (0.0-0.2); Basophils % 0.4 % (0.0-0.8); Eosinophils # 0.3 10*3/uL (0.0-0.87); Eosinophils % 2.6 % (0.00-10.9); Hematocrit 28.5 VOL% (35.7-47.0); Hemoglobin 9.5 GM/DL (12.0-16.0); Immature Granulocytes % 5.1 %; Immature Granulocytes Absolute 0.59 #; Lymphocytes # 3.1 10*3/uL (1.4-4.0); Mean Corpuscular HGB Conc 33.3 GM/DL (32-36); Mean Corpuscular Volume 91.3 FL (87-102); Monocytes % 8.9 % (1.7-12.7); Platelet Count 240 T/CUMM (130-400); Red Blood Count 3.12 MC/CUMM (3.8-5.5); Red Cell Distribution Width 15.1 % (9.3-17.3); White Blood Count 11.6 T/CUMM (4-12)
[2020-01-19 06:01] LABS: INR 1.8; PT Patient Result 18.3 SECS (9.8-11.9)
[2020-01-19 06:15] LABS: Eosinophils 4 % (0-10); Hypochromasia 1+; Lymphocytes 26 % (20-55); Platelet Estimate Adequate; Segmented Neutrophils 65 % (50-85); Total Cells Counted 100
[2020-01-19 06:16] LABS: Macrocytosis Slight
[2020-01-19 06:22] LABS: Albumin 2.4 G/DL (3.4-5.0); Bilirubin,Total 0.6 MG/DL (0.2-1.0); Osmolality,Calculated 280.1 MOS/KG (273-304); Total Protein 6.6 G/DL (6.4-8.3)
[2020-01-19] MEDS ORDERED: ENOXAPARIN 40 MG/0.4 ML SYRINGE SUBCUT SCH (09:00)
[2020-01-19] MEDS: HYDROCORTISONE 100 MG VIAL IV SCH ×2 (10:37)
[2020-01-19] MEDS: ACETAMINOPHEN 325 MG TABLET PO PRN ×2 (10:37→21:12)
[2020-01-19] MEDS: DULoxetine 30 MG CAPSULE PO SCH (10:38)
[2020-01-19] MEDS: CHOLECALCIFEROL 5,000 UNIT TABLET PO SCH (10:38)
[2020-01-19] MEDS: POTASSIUM CHLORIDE 20 MEQ TABLET PO SCH ×6 (10:38→21:12)
[2020-01-19] MEDS: FLUDROCORTISONE 0.1 MG TABLET PO SCH (10:38)
[2020-01-19] MEDS: SPIRONOLACTONE 50 MG TABLET PO SCH (10:38)
[2020-01-19] MEDS: ASCORBIC ACID 500 MG TABLET PO SCH (10:39)
[2020-01-19] MEDS: ASPIRIN CHEW 81 MG TABLET PO SCH (10:39)
[2020-01-19] MEDS: BENZONATATE 100 MG CAPSULE PO SCH ×3 (10:39→21:12)
[2020-01-19] MEDS: allopurinoL 100 MG TABLET PO SCH ×2 (10:39→21:13)
[2020-01-19] MEDS: CALCIUM (CARBONATE) 500 MG TABLET PO SCH (10:40)
[2020-01-19] MEDS: PANTOPRAZOLE 40 MG TABLET PO SCH (10:40)
[2020-01-19] MEDS: TRIAMTERENE/HCTZ 37.5-25 MG CAPSULE PO SCH ×2 (10:45→21:12)
[2020-01-19] MEDS: LIDOCAINE 2% TOP JELLY 5 ML TUBE TOP SCH ×4 (11:03→21:12)
[2020-01-19] MEDS ORDERED: FLUDROCORTISONE 0.1 MG TABLET PO SCH (16:00)
[2020-01-19] MEDS: WARFARIN 7.5 MG TABLET PO SCH (18:55)
[2020-01-20] MEDS: MEROPENEM 500 MG in SODIUM CHLORIDE 0.9% 100 ML IV SCH ×3 (00:10→11:44)
[2020-01-20 06:16] LABS: Basophils # 0.1 10*3/uL (0.0-0.2); Basophils % 0.4 % (0.0-0.8); Eosinophils # 0.3 10*3/uL (0.0-0.87); Eosinophils % 2.6 % (0.00-10.9); Hematocrit 30.2 VOL% (35.7-47.0); Hemoglobin 10.4 GM/DL (12.0-16.0); Immature Granulocytes % 2.2 %; Immature Granulocytes Absolute 0.27 #; Lymphocytes # 2.9 10*3/uL (1.4-4.0); Lymphocytes % 23.3 % (21.3-54.2); Mean Corpuscular HGB Conc 34.4 GM/DL (32-36); Mean Corpuscular Volume 89.1 FL (87-102); Mean Platelet Volume 11.1 FL (9.6-12.0); Monocytes % 6.4 % (1.7-12.7); Neutrophils % 65.1 % (38.7-73.9); Platelet Count 258 T/CUMM (130-400); Red Blood Count 3.39 MC/CUMM (3.8-5.5); Red Cell Distribution Width 15.1 % (9.3-17.3); White Blood Count 12.4 T/CUMM (4-12)
[2020-01-20 06:23] LABS: INR 1.6; PT Patient Result 16.8 SECS (9.8-11.9)
[2020-01-20 06:52] LABS: Albumin 2.5 G/DL (3.4-5.0); Bilirubin,Total 0.7 MG/DL (0.2-1.0); Osmolality,Calculated 276.4 MOS/KG (273-304); Total Protein 6.9 G/DL (6.4-8.3)
[2020-01-20 06:59] LABS: Eosinophils 4 % (0-10); Hypochromasia 1+; Lymphocytes 20 % (20-55); Platelet Estimate Adequate; Segmented Neutrophils 73 % (50-85); Total Cells Counted 100
[2020-01-20 07:00] LABS: Macrocytosis Slight
[2020-01-20] MEDS: ALBUTEROL/IPRATROPIUM 3 ML NEB RESP TX SCH ×2 (07:06→14:10)
[2020-01-20] MEDS: POTASSIUM CHLORIDE 20 MEQ TABLET PO SCH ×3 (08:09→14:02)
[2020-01-20] MEDS ORDERED: methylPREDNISolone 4 MG TABLET PO SCH (09:00)
[2020-01-20] MEDS ORDERED: traMADol 50 MG TABLET PO PRN (09:05)
[2020-01-20] MEDS ORDERED: METHOCARBAMOL 750 MG TABLET PO PRN (09:05)
[2020-01-20] MEDS ORDERED: MELOXICAM 7.5 MG TABLET PO SCH (09:30)
[2020-01-20] MEDS ORDERED: methylPREDNISolone SOD SUC 125 MG/2 ML VIAL IV ONE (09:30)
[2020-01-20] MEDS: CALCIUM (CARBONATE) 500 MG TABLET PO SCH (09:44)
[2020-01-20] MEDS: PANTOPRAZOLE 40 MG TABLET PO SCH (09:44)
[2020-01-20] MEDS: SPIRONOLACTONE 50 MG TABLET PO SCH (09:44)
[2020-01-20] MEDS: ASCORBIC ACID 500 MG TABLET PO SCH (09:44)
[2020-01-20] MEDS: allopurinoL 100 MG TABLET PO SCH (09:44)
[2020-01-20] MEDS: BENZONATATE 100 MG CAPSULE PO SCH ×2 (09:44→15:03)
[2020-01-20] MEDS: TRIAMTERENE/HCTZ 37.5-25 MG CAPSULE PO SCH (09:46)
[2020-01-20] MEDS: ASPIRIN CHEW 81 MG TABLET PO SCH (09:46)
[2020-01-20] MEDS: CHOLECALCIFEROL 5,000 UNIT TABLET PO SCH (09:46)
[2020-01-20] MEDS: FLUDROCORTISONE 0.1 MG TABLET PO SCH (09:46)
[2020-01-20] MEDS: DULoxetine 30 MG CAPSULE PO SCH (09:46)
[2020-01-20] MEDS ORDERED: ZINC GLUCONATE 50 MG TABLET PO SCH (10:00)
[2020-01-20] MEDS: LIDOCAINE 2% TOP JELLY 5 ML TUBE TOP SCH ×2 (10:02→14:03)
[2020-01-20] MEDS: HYDROCORTISONE 100 MG VIAL IV SCH (10:28)
[2020-01-20 11:55] VITALS: BP 169/76
[2020-01-20] MEDS ORDERED: FLUDROCORTISONE 0.1 MG TABLET PO SCH (16:00)
[2020-01-20] MEDS ORDERED: FERROUS SULFATE 325 MG TABLET PO SCH (17:00)
[2020-01-20] MEDS ORDERED: GABAPENTIN 300 MG CAPSULE PO SCH (21:00)
[2020-01-21] MEDS ORDERED: CETIRIZINE 10 MG TABLET PO SCH (09:00)
[2020-01-28] MEDS ORDERED: methylPREDNISolone 4 MG TABLET PO SCH (09:00)
== END 2020-01-20 15:30 | disposition swing bed (61) | DRG 853 ==
LOC: EDBD → EDUNIT# → N.ED 12:02 → SUATTDRO 13:36 → N.EDINP 13:36 → N.ICU 16:21 → N.3E 01-16 10:25
PROVIDERS: ADMIT Nurse Practitioner; ATTEND Internal Medicine

== ENCOUNTER 2020-08-01 06:12 | Inpatient (IN) ==
[~2020-08-01 06:12] MED LIST: ACETAMINOPHEN 500 MG TABLET PO ONE; CLINDAMYCIN INJ 900 MG in PREMIX 1 EACH IV ONE; FAMOTIDINE 20 MG TABLET PO ONE; GABAPENTIN 400 MG CAPSULE PO ONE; VANCOMYCIN INJ 1,000 MG in SODIUM CHLORIDE 0.9% 250 ML IV ONE
[2020-08-01] MEDS ORDERED: propofoL 200 MG/20 ML VIAL IV ONE (06:26)
[2020-08-01] MEDS ORDERED: LIDOCAINE 2% 5 ML VIAL ONE (06:26)
[2020-08-01] MEDS ORDERED: fentaNYL 100 MCG/2 ML VIAL ONE (06:26)
[2020-08-01] MEDS ORDERED: MIDAZOLAM 2 MG/2 ML VIAL ONE (06:26)
[2020-08-01] MEDS ORDERED: LIDOCAINE 1% 5 ML VIAL ONE (06:42)
[2020-08-01] MEDS ORDERED: ROPIVACAINE 0.5% 30 ML VIAL ONE (06:42)
[2020-08-01] MEDS: LACTATED RINGERS 1,000 ML IV SCH ×2 (06:51→11:06)
[2020-08-01 06:55] LABS: PT Patient Result 10.4 SECS (9.8-11.9); Partial Thromboplastin Time 33.9 SECS (23.9-33.8)
[2020-08-01] MEDS ORDERED: MAGNESIUM HYDROXIDE SUSP 30 ML UDCUP PO PRN (07:10)
[2020-08-01] MEDS ORDERED: TEMAZEPAM 7.5 MG CAPSULE PO PRN (07:10)
[2020-08-01] MEDS ORDERED: diphenhydrAMINE CAP 25 MG CAPSULE PO PRN (07:10)
[2020-08-01] MEDS ORDERED: BISACODYL 10 MG SUPP RECTAL PRN (07:10)
[2020-08-01] MEDS ORDERED: ROCURONIUM 50 MG/5 ML VIAL IV ONE (07:10)
[2020-08-01] MEDS ORDERED: ONDANSETRON 4 MG/2 ML VIAL IV PRN ×2 (07:10→10:26)
[2020-08-01] MEDS ORDERED: MORPHINE 4 MG/1 ML VIAL IV PRN (07:10)
[2020-08-01] MEDS ORDERED: LACTULOSE 20 GM/30 ML UDCUP PO PRN (07:10)
[2020-08-01] MEDS ORDERED: SUCCINYLCHOLINE 200 MG/10 ML VIAL ONE (07:10)
[2020-08-01] MEDS ORDERED: PROMETHAZINE 25 MG/1 ML VIAL IM PRN (07:10)
[2020-08-01] MEDS ORDERED: METHOCARBAMOL 750 MG TABLET PO PRN (07:12)
[2020-08-01] MEDS ORDERED: HYDROCORTISONE 100 MG VIAL ONE (07:29)
[2020-08-01] MEDS ORDERED: ePHEDrine 50 MG/ML VIAL ONE (08:03)
[2020-08-01] MEDS ORDERED: PHENYLEPHRINE 1 MG/10 ML SYRINGE IV ONE (08:29)
[2020-08-01] MEDS ORDERED: LACTATED RINGERS 1,000 ML IV ONE (08:29)
[2020-08-01] MEDS ORDERED: PHENYLEPHRINE 10 MG/1 ML VIAL IV ONE (08:30)
[2020-08-01] MEDS ORDERED: SODIUM CHLORIDE 0.9% 250 ML IV ONE (08:37)
[2020-08-01] MEDS ORDERED: ONDANSETRON 4 MG/2 ML VIAL ONE (08:45)
[2020-08-01] MEDS ORDERED: GLYCOPYRROLATE 0.4 MG/2 ML VIAL ONE (08:47)
[2020-08-01] MEDS ORDERED: NEOSTIGMINE 10 MG/10 ML VIAL ONE (08:47)
[2020-08-01] MEDS ORDERED: SEVOFLURANE 1 UNIT/15 MINUTE INH ONE (09:02)
[2020-08-01] MEDS ORDERED: MEPERIDINE 25 MG/1 ML VIAL IV PRN ×2 (09:30→10:56)
[2020-08-01] MEDS ORDERED: MEPERIDINE 25 MG/1 ML VIAL ONE (09:31)
[2020-08-01] MEDS: DOCUSATE SODIUM 100 MG CAPSULE PO SCH ×3 (11:45→22:09)
[2020-08-01] MEDS: SPIRONOLACTONE 50 MG TABLET PO SCH ×2 (11:45→12:40)
[2020-08-01] MEDS: DULoxetine 30 MG CAPSULE PO SCH ×2 (11:46→12:40)
[2020-08-01] MEDS: FERROUS SULFATE 325 MG TABLET PO SCH ×3 (11:46→22:08)
[2020-08-01] MEDS: TRIAMTERENE/HCTZ 37.5-25 MG CAPSULE PO SCH ×3 (11:46→21:58)
[2020-08-01] MEDS: CALCIUM (CARBONATE) 500 MG TABLET PO SCH ×2 (11:47→12:41)
[2020-08-01] MEDS: FLUDROCORTISONE 0.1 MG TABLET PO SCH ×3 (11:47→22:09)
[2020-08-01] MEDS: PANTOPRAZOLE 40 MG TABLET PO SCH ×2 (11:47→12:41)
[2020-08-01] MEDS: POTASSIUM CHLORIDE 20 MEQ TABLET PO SCH ×3 (11:47→22:08)
[2020-08-01] MEDS: CHOLECALCIFEROL 5,000 UNIT TABLET PO SCH ×2 (11:47→12:41)
[2020-08-01] MEDS: CETIRIZINE 10 MG TABLET PO SCH ×2 (11:48→12:41)
[2020-08-01] MEDS: allopurinoL 100 MG TABLET PO SCH ×3 (11:48→22:08)
[2020-08-01] MEDS: CLINDAMYCIN INJ 900 MG in PREMIX 1 EACH IV SCH ×2 (14:36→22:20)
[2020-08-01] MEDS: APIXABAN 2.5 MG TABLET PO SCH (21:58)
[2020-08-01] MEDS: traMADol 50 MG TABLET PO PRN (22:07)
[2020-08-01] MEDS: GABAPENTIN 300 MG CAPSULE PO SCH (22:08)
[2020-08-02 05:22] LABS: Basophils % 0.2 % (0.0-0.8); Eosinophils # 0.1 10*3/uL (0.0-0.87); Hematocrit 25.6 VOL% (35.7-47.0); Hemoglobin 8.4 GM/DL (12.0-16.0); Immature Granulocytes % 0.7 %; Immature Granulocytes Absolute 0.06 #; Lymphocytes # 1.2 10*3/uL (1.4-4.0); Lymphocytes % 14.1 % (21.3-54.2); Mean Corpuscular HGB Conc 32.8 GM/DL (32-36); Mean Corpuscular Volume 94.8 FL (87-102); Mean Platelet Volume 10.6 FL (9.6-12.0); Monocytes % 10.9 % (1.7-12.7); Neutrophils % 73.1 % (38.7-73.9); Platelet Count 174 T/CUMM (130-400); Red Cell Distribution Width 15.2 % (9.3-17.3); White Blood Count 8.6 T/CUMM (4-12)
[2020-08-02 05:36] LABS: Calcium 8.8 MG/DL (8.5-10.1); Osmolality,Calculated 279.4 MOS/KG (273-304); Potassium 3.8 MMOL/L (3.5-5.1)
[2020-08-02] MEDS: traMADol 50 MG TABLET PO PRN (05:47)
[2020-08-02] MEDS: POTASSIUM CHLORIDE 20 MEQ TABLET PO SCH ×2 (09:22→21:24)
[2020-08-02] MEDS: MELOXICAM 7.5 MG TABLET PO SCH (09:23)
[2020-08-02] MEDS: FLUDROCORTISONE 0.1 MG TABLET PO SCH ×2 (09:23→21:24)
[2020-08-02] MEDS: PANTOPRAZOLE 40 MG TABLET PO SCH (09:23)
[2020-08-02] MEDS: ZINC GLUCONATE 50 MG TABLET PO SCH (09:23)
[2020-08-02] MEDS: DULoxetine 30 MG CAPSULE PO SCH (09:23)
[2020-08-02] MEDS: CALCIUM (CARBONATE) 500 MG TABLET PO SCH (09:23)
[2020-08-02] MEDS: DOCUSATE SODIUM 100 MG CAPSULE PO SCH ×2 (09:23→21:24)
[2020-08-02] MEDS: CHOLECALCIFEROL 5,000 UNIT TABLET PO SCH (09:23)
[2020-08-02] MEDS: TRIAMTERENE/HCTZ 37.5-25 MG CAPSULE PO SCH ×2 (09:23→21:25)
[2020-08-02] MEDS: ASCORBIC ACID 500 MG TABLET PO SCH (09:24)
[2020-08-02] MEDS: FERROUS SULFATE 325 MG TABLET PO SCH ×2 (09:24→21:24)
[2020-08-02] MEDS: CETIRIZINE 10 MG TABLET PO SCH (09:24)
[2020-08-02] MEDS: allopurinoL 100 MG TABLET PO SCH ×2 (09:24→21:25)
[2020-08-02] MEDS: SPIRONOLACTONE 50 MG TABLET PO SCH ×2 (09:24→10:14)
[2020-08-02] MEDS: APIXABAN 2.5 MG TABLET PO SCH ×2 (10:14→21:24)
[2020-08-02] MEDS ORDERED: ACETAMINOPHEN 325 MG TABLET PO ONE (10:34)
[2020-08-02] MEDS ORDERED: ACETAMINOPHEN 325 MG TABLET PO PRN (10:34)
[2020-08-02] MEDS: GABAPENTIN 300 MG CAPSULE PO SCH (21:24)
[2020-08-03 06:49] LABS: Basophils % 0.3 % (0.0-0.8); Eosinophils # 0.3 10*3/uL (0.0-0.87); Eosinophils % 3.1 % (0.00-10.9); Hematocrit 24.5 VOL% (35.7-47.0); Hemoglobin 8.2 GM/DL (12.0-16.0); Immature Granulocytes Absolute 0.09 #; Lymphocytes # 1.4 10*3/uL (1.4-4.0); Lymphocytes % 15.6 % (21.3-54.2); Mean Corpuscular HGB Conc 33.5 GM/DL (32-36); Mean Corpuscular Volume 94.2 FL (87-102); Mean Platelet Volume 10.9 FL (9.6-12.0); Platelet Count 171 T/CUMM (130-400); Red Cell Distribution Width 15.3 % (9.3-17.3); White Blood Count 9.2 T/CUMM (4-12)
[2020-08-03 07:14] LABS: Calcium 8.8 MG/DL (8.5-10.1); Osmolality,Calculated 282.1 MOS/KG (273-304); Potassium 3.7 MMOL/L (3.5-5.1)
[2020-08-03] MEDS: DULoxetine 30 MG CAPSULE PO SCH (08:41)
[2020-08-03] MEDS: MELOXICAM 7.5 MG TABLET PO SCH (08:41)
[2020-08-03] MEDS: FLUDROCORTISONE 0.1 MG TABLET PO SCH ×2 (08:41→20:15)
[2020-08-03] MEDS: FERROUS SULFATE 325 MG TABLET PO SCH ×2 (08:41→20:15)
[2020-08-03] MEDS: ASCORBIC ACID 500 MG TABLET PO SCH (08:41)
[2020-08-03] MEDS: CETIRIZINE 10 MG TABLET PO SCH (08:41)
[2020-08-03] MEDS: ZINC GLUCONATE 50 MG TABLET PO SCH (08:41)
[2020-08-03] MEDS: allopurinoL 100 MG TABLET PO SCH ×2 (08:42→20:16)
[2020-08-03] MEDS: PANTOPRAZOLE 40 MG TABLET PO SCH (08:44)
[2020-08-03] MEDS: POTASSIUM CHLORIDE 20 MEQ TABLET PO SCH ×2 (08:44→20:15)
[2020-08-03] MEDS: DOCUSATE SODIUM 100 MG CAPSULE PO SCH ×2 (08:44→20:15)
[2020-08-03] MEDS: CALCIUM (CARBONATE) 500 MG TABLET PO SCH (08:44)
[2020-08-03] MEDS: CHOLECALCIFEROL 5,000 UNIT TABLET PO SCH (08:44)
[2020-08-03] MEDS: APIXABAN 2.5 MG TABLET PO SCH ×2 (08:44→20:15)
[2020-08-03] MEDS: SPIRONOLACTONE 50 MG TABLET PO SCH (09:01)
[2020-08-03] MEDS: TRIAMTERENE/HCTZ 37.5-25 MG CAPSULE PO SCH ×2 (09:02→20:16)
[2020-08-03] MEDS ORDERED: methylPREDNISolone SOD SUC 40 MG/1 ML VIAL IV ONE (09:40)
[2020-08-03] MEDS: GABAPENTIN 300 MG CAPSULE PO SCH (20:15)
[2020-08-04 04:47] LABS: Basophils % 0.4 % (0.0-0.8); Eosinophils # 0.2 10*3/uL (0.0-0.87); Eosinophils % 1.9 % (0.00-10.9); Hematocrit 25.2 VOL% (35.7-47.0); Hemoglobin 8.3 GM/DL (12.0-16.0); Immature Granulocytes % 0.9 %; Immature Granulocytes Absolute 0.09 #; Lymphocytes # 1.5 10*3/uL (1.4-4.0); Lymphocytes % 14.2 % (21.3-54.2); Mean Corpuscular HGB Conc 32.9 GM/DL (32-36); Mean Corpuscular Volume 94.4 FL (87-102); Mean Platelet Volume 10.4 FL (9.6-12.0); Monocytes % 9.5 % (1.7-12.7); Neutrophils % 73.1 % (38.7-73.9); Platelet Count 175 T/CUMM (130-400); Red Blood Count 2.67 MC/CUMM (3.8-5.5); Red Cell Distribution Width 15.1 % (9.3-17.3); White Blood Count 10.3 T/CUMM (4-12)
[2020-08-04] MEDS: CHOLECALCIFEROL 5,000 UNIT TABLET PO SCH (09:18)
[2020-08-04] MEDS: MELOXICAM 7.5 MG TABLET PO SCH (09:18)
[2020-08-04] MEDS: FLUDROCORTISONE 0.1 MG TABLET PO SCH (09:18)
[2020-08-04] MEDS: DULoxetine 30 MG CAPSULE PO SCH (09:18)
[2020-08-04] MEDS: POTASSIUM CHLORIDE 20 MEQ TABLET PO SCH (09:18)
[2020-08-04] MEDS: CETIRIZINE 10 MG TABLET PO SCH (09:18)
[2020-08-04] MEDS: ASCORBIC ACID 500 MG TABLET PO SCH (09:18)
[2020-08-04] MEDS: DOCUSATE SODIUM 100 MG CAPSULE PO SCH (09:19)
[2020-08-04] MEDS: FERROUS SULFATE 325 MG TABLET PO SCH (09:19)
[2020-08-04] MEDS: allopurinoL 100 MG TABLET PO SCH (09:19)
[2020-08-04] MEDS: ZINC GLUCONATE 50 MG TABLET PO SCH (09:19)
[2020-08-04] MEDS: CALCIUM (CARBONATE) 500 MG TABLET PO SCH (09:19)
[2020-08-04] MEDS: APIXABAN 2.5 MG TABLET PO SCH (09:20)
[2020-08-04] MEDS: PANTOPRAZOLE 40 MG TABLET PO SCH (09:22)
[2020-08-04] MEDS: SPIRONOLACTONE 50 MG TABLET PO SCH (09:26)
[2020-08-04] MEDS: TRIAMTERENE/HCTZ 37.5-25 MG CAPSULE PO SCH (09:26)
[2020-08-04 11:01] VITALS: BP 93/51
== END 2020-08-04 13:45 | disposition swing bed (61) | DRG 467 ==
LOC: N.OR 06:12 → N.SDSINP 06:15 → N.3E 10:47
PROVIDERS: ADMIT Orthopaedic Surgery; ATTEND Orthopaedic Surgery

== ENCOUNTER 2020-10-26 15:30 | Inpatient (IN) ==
[2020-10-26] MEDS ORDERED: CLINDAMYCIN INJ 600 MG/50 ML PREMIX IV STA (17:44)
[2020-10-26 18:45] LABS: Basophils # 0.1 10*3/uL (0.0-0.2); Basophils % 0.4 % (0.0-0.8); Eosinophils % 0.3 % (0.00-10.9); Hematocrit 41.9 VOL% (35.7-47.0); Hemoglobin 13.8 GM/DL (12.0-16.0); Immature Granulocytes Absolute 0.11 #; Lymphocytes # 1.5 10*3/uL (1.4-4.0); Lymphocytes % 13.2 % (21.3-54.2); Mean Corpuscular HGB Conc 32.9 GM/DL (32-36); Mean Corpuscular Volume 92.7 FL (87-102); Mean Platelet Volume 10.2 FL (9.6-12.0); Neutrophils % 79.1 % (38.7-73.9); Platelet Count 214 T/CUMM (130-400); Red Blood Count 4.52 MC/CUMM (3.8-5.5); Red Cell Distribution Width 15.7 % (9.3-17.3); White Blood Count 11.1 T/CUMM (4-12)
[2020-10-26] MEDS ORDERED: SODIUM CHLORIDE 0.9% 1,000 ML IV STA (19:28)
[2020-10-26 19:29] LABS: Alanine Aminotransferase 39 U/L (13-56); Albumin 4.3 G/DL (3.4-5.0); Alkaline Phosphatase 138 U/L (45-117); Aspartate Amino Transferase 39 U/L (0-37); Blood Urea Nitrogen 10 MG/DL (7-18); Calcium 10.1 MG/DL (8.5-10.1); Carbon Dioxide 28 MMOL/L (21-32); Estimated Glom Filtration Rate 121 ML/MIN; Glucose 102 MG/DL (74-106); Osmolality,Calculated 271.8 MOS/KG (273-304); Potassium 3.9 MMOL/L (3.5-5.1); Sodium 137 MMOL/L (136-145); Total Protein 9.3 G/DL (6.4-8.2)
[2020-10-26] MEDS ORDERED: MORPHINE 10 MG/1 ML VIAL IV STA (19:30)
[2020-10-26] MEDS ORDERED: ONDANSETRON 4 MG/2 ML VIAL IV STA (19:30)
[2020-10-26] MEDS ORDERED: MORPHINE 2 MG/1 ML SYRINGE ONE (19:43)
[2020-10-26] MEDS ORDERED: ONDANSETRON 4 MG/2 ML VIAL IV PRN (20:05)
[2020-10-26] MEDS ORDERED: ACETAMINOPHEN 325 MG TABLET PO PRN (20:05)
[2020-10-26] MEDS ORDERED: GLUCAGON 1 MG VIAL IM PRN (20:05)
[2020-10-26] MEDS ORDERED: hydrALAZINE 20 MG/1 ML VIAL IV PRN (20:05)
[2020-10-26] MEDS ORDERED: DEXTROSE 50% 25 GM/50 ML VIAL IV PRN (20:05)
[2020-10-26] MEDS ORDERED: VANCOMYCIN INJ 1,000 MG in SODIUM CHLORIDE 0.9% 250 ML IV SCH (20:30)
[2020-10-26] MEDS: LACTATED RINGERS 1,000 ML IV SCH (21:03)
[2020-10-26] MEDS ORDERED: MORPHINE 10 MG/1 ML VIAL IV ONE (21:43)
[2020-10-26] MEDS ORDERED: methylPREDNISolone SOD SUC 125 MG/2 ML VIAL IV ONE (21:51)
[2020-10-26] MEDS: MORPHINE 2 MG/1 ML SYRINGE IV PRN (22:03)
[2020-10-26] MEDS: VANCOMYCIN INJ 1,500 MG in SODIUM CHLORIDE 0.9% 500 ML IV SCH (23:08)
[2020-10-26] MEDS: APIXABAN 2.5 MG TABLET PO SCH (23:08)
[2020-10-27] MEDS: MORPHINE 2 MG/1 ML SYRINGE IV PRN ×3 (05:42→20:32)
[2020-10-27 06:44] LABS: Basophils % 0.3 % (0.0-0.8); Hematocrit 31.6 VOL% (35.7-47.0); Hemoglobin 10.6 GM/DL (12.0-16.0); Immature Granulocytes % 0.5 %; Immature Granulocytes Absolute 0.05 #; Lymphocytes # 0.9 10*3/uL (1.4-4.0); Lymphocytes % 9.1 % (21.3-54.2); Mean Corpuscular HGB Conc 33.5 GM/DL (32-36); Mean Corpuscular Volume 93.5 FL (87-102); Mean Platelet Volume 11.3 FL (9.6-12.0); Monocytes % 1.3 % (1.7-12.7); Neutrophils % 88.8 % (38.7-73.9); Platelet Count 217 T/CUMM (130-400); Red Blood Count 3.38 MC/CUMM (3.8-5.5); Red Cell Distribution Width 15.7 % (9.3-17.3); White Blood Count 10.1 T/CUMM (4-12)
[2020-10-27 07:06] LABS: Calcium 9.3 MG/DL (8.5-10.1); Potassium 4.2 MMOL/L (3.5-5.1)
[2020-10-27] MEDS ORDERED: METHOCARBAMOL 750 MG TABLET PO PRN (07:18)
[2020-10-27] MEDS: SPIRONOLACTONE 25 MG TABLET PO SCH (08:33)
[2020-10-27] MEDS: MELOXICAM 7.5 MG TABLET PO SCH (08:33)
[2020-10-27] MEDS: FOLIC ACID 1 MG TABLET PO SCH (08:33)
[2020-10-27] MEDS: ZINC GLUCONATE 50 MG TABLET PO SCH (08:33)
[2020-10-27] MEDS: PANTOPRAZOLE 40 MG TABLET PO SCH (08:34)
[2020-10-27] MEDS: ASCORBIC ACID 500 MG TABLET PO SCH (08:34)
[2020-10-27] MEDS: FLUDROCORTISONE 0.1 MG TABLET PO SCH ×2 (08:34→20:32)
[2020-10-27] MEDS: FERROUS SULFATE 325 MG TABLET PO SCH ×2 (08:34→20:32)
[2020-10-27] MEDS: POTASSIUM CHLORIDE 20 MEQ TABLET PO SCH ×2 (08:34→20:32)
[2020-10-27] MEDS: CHOLECALCIFEROL 5,000 UNIT TABLET PO SCH (08:34)
[2020-10-27] MEDS: APIXABAN 2.5 MG TABLET PO SCH (08:34)
[2020-10-27] MEDS: allopurinoL 100 MG TABLET PO SCH ×2 (08:34→20:32)
[2020-10-27] MEDS: DULoxetine 30 MG CAPSULE PO SCH (08:35)
[2020-10-27] MEDS: TRIAMTERENE/HCTZ 37.5-25 MG CAPSULE PO SCH ×2 (08:41→20:32)
[2020-10-27] MEDS: LACTATED RINGERS 1,000 ML IV SCH ×2 (08:43→20:34)
[2020-10-27] MEDS: MEROPENEM 500 MG in SODIUM CHLORIDE 0.9% 100 ML IV SCH ×2 (10:50→17:20)
[2020-10-27] MEDS: VANCOMYCIN INJ 1,500 MG in SODIUM CHLORIDE 0.9% 500 ML IV SCH (11:46)
[2020-10-27] MEDS: traMADol 50 MG TABLET PO PRN (16:23)
[2020-10-27] MEDS: CHLORHEXIDINE 0.12% ORAL RINSE 60 ML BOTTLE SWISH/SPIT SCH (20:31)
[2020-10-27] MEDS: GABAPENTIN 300 MG CAPSULE PO SCH (20:31)
[2020-10-28] MEDS: MEROPENEM 500 MG in SODIUM CHLORIDE 0.9% 100 ML IV SCH ×5 (00:01→22:02)
[2020-10-28] MEDS: VANCOMYCIN INJ 1,500 MG in SODIUM CHLORIDE 0.9% 500 ML IV SCH ×3 (00:48→23:20)
[2020-10-28] MEDS: MORPHINE 2 MG/1 ML SYRINGE IV PRN ×3 (00:54→17:43)
[2020-10-28 05:46] LABS: Basophils % 0.3 % (0.0-0.8); Eosinophils # 0.1 10*3/uL (0.0-0.87); Eosinophils % 0.6 % (0.00-10.9); Hemoglobin 9.2 GM/DL (12.0-16.0); Immature Granulocytes % 0.7 %; Immature Granulocytes Absolute 0.07 #; Lymphocytes # 1.9 10*3/uL (1.4-4.0); Lymphocytes % 18.2 % (21.3-54.2); Mean Corpuscular HGB Conc 32.9 GM/DL (32-36); Mean Corpuscular Volume 94.3 FL (87-102); Mean Platelet Volume 10.7 FL (9.6-12.0); Monocytes % 9.9 % (1.7-12.7); Neutrophils % 70.3 % (38.7-73.9); Platelet Count 223 T/CUMM (130-400); Red Blood Count 2.97 MC/CUMM (3.8-5.5); Red Cell Distribution Width 15.2 % (9.3-17.3); White Blood Count 10.4 T/CUMM (4-12)
[2020-10-28 06:45] LABS: Calcium 8.8 MG/DL (8.5-10.1); Osmolality,Calculated 276.4 MOS/KG (273-304); Potassium 3.7 MMOL/L (3.5-5.1)
[2020-10-28] MEDS ORDERED: DEXAMETHASONE 10 MG/1 ML VIAL IV ONE (09:03)
[2020-10-28] MEDS: LACTATED RINGERS 1,000 ML IV SCH ×3 (10:20→20:28)
[2020-10-28] MEDS ORDERED: LIDOCAINE 1%/EPI INJ 20 ML VIAL ONE (11:14)
[2020-10-28] MEDS ORDERED: fentaNYL 100 MCG/2 ML VIAL ONE (12:07)
[2020-10-28] MEDS ORDERED: SUCCINYLCHOLINE 200 MG/10 ML VIAL ONE (12:18)
[2020-10-28] MEDS ORDERED: propofoL 200 MG/20 ML VIAL IV ONE (12:18)
[2020-10-28] MEDS ORDERED: DEXAMETHASONE 4 MG/1 ML VIAL ONE (12:18)
[2020-10-28] MEDS ORDERED: DESFLURANE 1 UNIT/15 MINUTE INH ONE ×2 (12:18→12:48)
[2020-10-28] MEDS ORDERED: ROCURONIUM 50 MG/5 ML VIAL IV ONE (12:18)
[2020-10-28] MEDS ORDERED: ONDANSETRON 4 MG/2 ML VIAL ONE (12:18)
[2020-10-28] MEDS ORDERED: LIDOCAINE 2% 5 ML VIAL ONE (12:18)
[2020-10-28] MEDS ORDERED: PHENYLEPHRINE 1 MG/10 ML SYRINGE IV ONE (12:19)
[2020-10-28] MEDS ORDERED: SUGAMMADEX 200 MG/2 ML VIAL IV ONE (12:28)
[2020-10-28] MEDS ORDERED: HYDROmorphone 2 MG/1 ML VIAL ONE (12:44)
[2020-10-28] MEDS: HYDROmorphone 2 MG/1 ML VIAL IV PRN ×4 (12:45→13:15)
[2020-10-28] MEDS ORDERED: ONDANSETRON 4 MG/2 ML VIAL IV PRN (12:51)
[2020-10-28] MEDS: FLUDROCORTISONE 0.1 MG TABLET PO SCH ×2 (13:49→20:30)
[2020-10-28] MEDS: ZINC GLUCONATE 50 MG TABLET PO SCH (13:50)
[2020-10-28] MEDS: PANTOPRAZOLE 40 MG TABLET PO SCH (13:50)
[2020-10-28] MEDS: ASCORBIC ACID 500 MG TABLET PO SCH (13:50)
[2020-10-28] MEDS: POTASSIUM CHLORIDE 20 MEQ TABLET PO SCH ×2 (13:50→20:27)
[2020-10-28] MEDS: CHOLECALCIFEROL 5,000 UNIT TABLET PO SCH (13:50)
[2020-10-28] MEDS: MELOXICAM 7.5 MG TABLET PO SCH (13:50)
[2020-10-28] MEDS: DULoxetine 30 MG CAPSULE PO SCH (13:50)
[2020-10-28] MEDS: TRIAMTERENE/HCTZ 37.5-25 MG CAPSULE PO SCH ×2 (13:51→20:27)
[2020-10-28] MEDS: FERROUS SULFATE 325 MG TABLET PO SCH ×2 (13:51→20:28)
[2020-10-28] MEDS: CHLORHEXIDINE 0.12% ORAL RINSE 60 ML BOTTLE SWISH/SPIT SCH ×2 (13:51→20:30)
[2020-10-28] MEDS: SPIRONOLACTONE 25 MG TABLET PO SCH (13:51)
[2020-10-28] MEDS: allopurinoL 100 MG TABLET PO SCH ×2 (13:51→20:27)
[2020-10-28] MEDS: FOLIC ACID 1 MG TABLET PO SCH (13:51)
[2020-10-28] MEDS: DEXAMETHASONE 4 MG/1 ML VIAL IV SCH (16:39)
[2020-10-28] MEDS: GABAPENTIN 300 MG CAPSULE PO SCH (20:27)
[2020-10-29] MEDS: traMADol 50 MG TABLET PO PRN (00:45)
[2020-10-29] MEDS: DEXAMETHASONE 4 MG/1 ML VIAL IV SCH ×3 (01:47→17:51)
[2020-10-29] MEDS: MORPHINE 2 MG/1 ML SYRINGE IV PRN ×3 (01:49→23:51)
[2020-10-29] MEDS: MEROPENEM 500 MG in SODIUM CHLORIDE 0.9% 100 ML IV SCH ×4 (04:12→22:04)
[2020-10-29] MEDS: LACTATED RINGERS 1,000 ML IV SCH ×2 (04:15→11:21)
[2020-10-29 05:31] LABS: Hematocrit 29.1 VOL% (35.7-47.0); Hemoglobin 9.6 GM/DL (12.0-16.0); Immature Granulocytes % 0.7 %; Immature Granulocytes Absolute 0.05 #; Lymphocytes # 0.9 10*3/uL (1.4-4.0); Lymphocytes % 12.2 % (21.3-54.2); Mean Corpuscular Volume 93.6 FL (87-102); Mean Platelet Volume 10.2 FL (9.6-12.0); Monocytes % 5.2 % (1.7-12.7); Neutrophils % 81.9 % (38.7-73.9); Platelet Count 229 T/CUMM (130-400); Red Blood Count 3.11 MC/CUMM (3.8-5.5); Red Cell Distribution Width 14.6 % (9.3-17.3); White Blood Count 7.6 T/CUMM (4-12)
[2020-10-29 05:43] LABS: Osmolality,Calculated 272.8 MOS/KG (273-304); Potassium 4.1 MMOL/L (3.5-5.1)
[2020-10-29] MEDS: CHOLECALCIFEROL 5,000 UNIT TABLET PO SCH (09:27)
[2020-10-29] MEDS: POTASSIUM CHLORIDE 20 MEQ TABLET PO SCH ×2 (09:28→20:40)
[2020-10-29] MEDS: ASCORBIC ACID 500 MG TABLET PO SCH (09:28)
[2020-10-29] MEDS: FOLIC ACID 1 MG TABLET PO SCH (09:28)
[2020-10-29] MEDS: FLUDROCORTISONE 0.1 MG TABLET PO SCH ×2 (09:28→20:40)
[2020-10-29] MEDS: MELOXICAM 7.5 MG TABLET PO SCH (09:28)
[2020-10-29] MEDS: PANTOPRAZOLE 40 MG TABLET PO SCH (09:28)
[2020-10-29] MEDS: ZINC GLUCONATE 50 MG TABLET PO SCH (09:28)
[2020-10-29] MEDS: DULoxetine 30 MG CAPSULE PO SCH (09:28)
[2020-10-29] MEDS: allopurinoL 100 MG TABLET PO SCH ×2 (09:28→20:41)
[2020-10-29] MEDS: SPIRONOLACTONE 25 MG TABLET PO SCH (09:29)
[2020-10-29] MEDS: CHLORHEXIDINE 0.12% ORAL RINSE 60 ML BOTTLE SWISH/SPIT SCH ×2 (09:29→20:41)
[2020-10-29] MEDS: TRIAMTERENE/HCTZ 37.5-25 MG CAPSULE PO SCH ×2 (09:29→20:40)
[2020-10-29] MEDS: FERROUS SULFATE 325 MG TABLET PO SCH ×2 (09:29→20:41)
[2020-10-29] MEDS: VANCOMYCIN INJ 1,500 MG in SODIUM CHLORIDE 0.9% 500 ML IV SCH ×2 (12:09→23:01)
[2020-10-29] MEDS: GABAPENTIN 300 MG CAPSULE PO SCH (20:40)
[2020-10-29] MEDS: APIXABAN 2.5 MG TABLET PO SCH (20:41)
[2020-10-30] MEDS: DEXAMETHASONE 4 MG/1 ML VIAL IV SCH ×3 (02:17→16:47)
[2020-10-30] MEDS: MEROPENEM 500 MG in SODIUM CHLORIDE 0.9% 100 ML IV SCH ×4 (04:20→23:45)
[2020-10-30] MEDS: LACTATED RINGERS 1,000 ML IV SCH ×2 (04:29→08:50)
[2020-10-30 06:32] LABS: Basophils % 0.1 % (0.0-0.8); Hematocrit 30.2 VOL% (35.7-47.0); Hemoglobin 10.3 GM/DL (12.0-16.0); Immature Granulocytes % 1.3 %; Lymphocytes # 1.1 10*3/uL (1.4-4.0); Lymphocytes % 14.6 % (21.3-54.2); Mean Corpuscular HGB Conc 34.1 GM/DL (32-36); Mean Corpuscular Volume 91.5 FL (87-102); Mean Platelet Volume 10.2 FL (9.6-12.0); Monocytes % 6.3 % (1.7-12.7); Neutrophils % 77.7 % (38.7-73.9); Platelet Count 236 T/CUMM (130-400); Red Cell Distribution Width 14.7 % (9.3-17.3); White Blood Count 7.8 T/CUMM (4-12)
[2020-10-30 07:05] LABS: Calcium 9.5 MG/DL (8.5-10.1); Potassium 4.2 MMOL/L (3.5-5.1)
[2020-10-30] MEDS: allopurinoL 100 MG TABLET PO SCH ×2 (08:36→21:35)
[2020-10-30] MEDS: CHOLECALCIFEROL 5,000 UNIT TABLET PO SCH (08:36)
[2020-10-30] MEDS: ASCORBIC ACID 500 MG TABLET PO SCH (08:36)
[2020-10-30] MEDS: POTASSIUM CHLORIDE 20 MEQ TABLET PO SCH ×2 (08:36→21:36)
[2020-10-30] MEDS: PANTOPRAZOLE 40 MG TABLET PO SCH (08:36)
[2020-10-30] MEDS: FLUDROCORTISONE 0.1 MG TABLET PO SCH ×2 (08:36→21:36)
[2020-10-30] MEDS: MELOXICAM 7.5 MG TABLET PO SCH (08:36)
[2020-10-30] MEDS: ZINC GLUCONATE 50 MG TABLET PO SCH (08:36)
[2020-10-30] MEDS: FOLIC ACID 1 MG TABLET PO SCH (08:37)
[2020-10-30] MEDS: DULoxetine 30 MG CAPSULE PO SCH (08:37)
[2020-10-30] MEDS: SPIRONOLACTONE 25 MG TABLET PO SCH (08:37)
[2020-10-30] MEDS: TRIAMTERENE/HCTZ 37.5-25 MG CAPSULE PO SCH ×2 (08:37→21:36)
[2020-10-30] MEDS: FERROUS SULFATE 325 MG TABLET PO SCH ×2 (08:37→21:36)
[2020-10-30] MEDS: CHLORHEXIDINE 0.12% ORAL RINSE 60 ML BOTTLE SWISH/SPIT SCH ×2 (08:37→21:56)
[2020-10-30] MEDS: APIXABAN 2.5 MG TABLET PO SCH ×2 (08:37→21:36)
[2020-10-30] MEDS: MORPHINE 2 MG/1 ML SYRINGE IV PRN ×2 (08:41→21:46)
[2020-10-30] MEDS: VANCOMYCIN INJ 1,500 MG in SODIUM CHLORIDE 0.9% 500 ML IV SCH (12:16)
[2020-10-30] MEDS: traMADol 50 MG TABLET PO PRN (13:00)
[2020-10-30] MEDS: GABAPENTIN 300 MG CAPSULE PO SCH (21:35)
[2020-10-31] MEDS: VANCOMYCIN INJ 1,500 MG in SODIUM CHLORIDE 0.9% 500 ML IV SCH ×2 (00:30→12:01)
[2020-10-31] MEDS: DEXAMETHASONE 4 MG/1 ML VIAL IV SCH ×3 (03:05→17:28)
[2020-10-31] MEDS: MEROPENEM 500 MG in SODIUM CHLORIDE 0.9% 100 ML IV SCH ×2 (05:01→10:40)
[2020-10-31] MEDS: LACTATED RINGERS 1,000 ML IV SCH ×2 (05:02→08:04)
[2020-10-31 05:51] LABS: Basophils % 0.1 % (0.0-0.8); Eosinophils % 0.1 % (0.00-10.9); Hematocrit 30.8 VOL% (35.7-47.0); Hemoglobin 10.2 GM/DL (12.0-16.0); Immature Granulocytes % 1.5 %; Immature Granulocytes Absolute 0.11 #; Lymphocytes # 1.2 10*3/uL (1.4-4.0); Mean Corpuscular HGB Conc 33.1 GM/DL (32-36); Mean Corpuscular Volume 93.1 FL (87-102); Mean Platelet Volume 10.6 FL (9.6-12.0); Monocytes % 6.9 % (1.7-12.7); Neutrophils % 74.4 % (38.7-73.9); Platelet Count 246 T/CUMM (130-400); Red Blood Count 3.31 MC/CUMM (3.8-5.5); Red Cell Distribution Width 14.8 % (9.3-17.3); White Blood Count 7.3 T/CUMM (4-12)
[2020-10-31 06:06] LABS: Calcium 9.1 MG/DL (8.5-10.1); Osmolality,Calculated 276.5 MOS/KG (273-304); Potassium 4.1 MMOL/L (3.5-5.1)
[2020-10-31] MEDS: DULoxetine 30 MG CAPSULE PO SCH (10:10)
[2020-10-31] MEDS: FLUDROCORTISONE 0.1 MG TABLET PO SCH ×2 (10:10→21:31)
[2020-10-31] MEDS: PANTOPRAZOLE 40 MG TABLET PO SCH (10:11)
[2020-10-31] MEDS: MELOXICAM 7.5 MG TABLET PO SCH (10:11)
[2020-10-31] MEDS: POTASSIUM CHLORIDE 20 MEQ TABLET PO SCH ×2 (10:11→21:24)
[2020-10-31] MEDS: allopurinoL 100 MG TABLET PO SCH ×2 (10:11→21:24)
[2020-10-31] MEDS: SPIRONOLACTONE 25 MG TABLET PO SCH (10:11)
[2020-10-31] MEDS: FOLIC ACID 1 MG TABLET PO SCH (10:11)
[2020-10-31] MEDS: ZINC GLUCONATE 50 MG TABLET PO SCH (10:11)
[2020-10-31] MEDS: ASCORBIC ACID 500 MG TABLET PO SCH (10:12)
[2020-10-31] MEDS: FERROUS SULFATE 325 MG TABLET PO SCH ×2 (10:12→21:24)
[2020-10-31] MEDS: CHLORHEXIDINE 0.12% ORAL RINSE 60 ML BOTTLE SWISH/SPIT SCH ×2 (10:12→21:24)
[2020-10-31] MEDS: APIXABAN 2.5 MG TABLET PO SCH ×2 (10:12→21:24)
[2020-10-31] MEDS: TRIAMTERENE/HCTZ 37.5-25 MG CAPSULE PO SCH ×2 (10:19→21:24)
[2020-10-31] MEDS: CHOLECALCIFEROL 5,000 UNIT TABLET PO SCH (10:24)
[2020-10-31] MEDS: CLINDAMYCIN 150 MG CAPSULE PO SCH ×2 (14:55→21:24)
[2020-10-31] MEDS: traMADol 50 MG TABLET PO PRN (15:51)
[2020-10-31] MEDS: DOCUSATE SODIUM 100 MG CAPSULE PO SCH (21:24)
[2020-10-31] MEDS: GABAPENTIN 300 MG CAPSULE PO SCH (21:24)
[2020-10-31] MEDS: MORPHINE 2 MG/1 ML SYRINGE IV PRN (23:13)
[2020-11-01] MEDS: DEXAMETHASONE 4 MG/1 ML VIAL IV SCH ×3 (00:33→18:35)
[2020-11-01 05:39] LABS: Basophils % 0.1 % (0.0-0.8); Hematocrit 31.8 VOL% (35.7-47.0); Hemoglobin 10.9 GM/DL (12.0-16.0); Immature Granulocytes % 3.5 %; Immature Granulocytes Absolute 0.27 #; Lymphocytes # 1.3 10*3/uL (1.4-4.0); Lymphocytes % 16.8 % (21.3-54.2); Mean Corpuscular HGB Conc 34.3 GM/DL (32-36); Mean Corpuscular Volume 89.1 FL (87-102); Mean Platelet Volume 10.5 FL (9.6-12.0); Monocytes % 6.2 % (1.7-12.7); Neutrophils % 73.4 % (38.7-73.9); Platelet Count 267 T/CUMM (130-400); Red Blood Count 3.57 MC/CUMM (3.8-5.5); Red Cell Distribution Width 14.6 % (9.3-17.3); White Blood Count 7.7 T/CUMM (4-12)
[2020-11-01 06:00] LABS: Calcium 9.1 MG/DL (8.5-10.1); Osmolality,Calculated 274.7 MOS/KG (273-304); Potassium 4.1 MMOL/L (3.5-5.1)
[2020-11-01] MEDS: LACTATED RINGERS 1,000 ML IV SCH (07:00)
[2020-11-01] MEDS: FLUDROCORTISONE 0.1 MG TABLET PO SCH ×2 (09:06→21:46)
[2020-11-01] MEDS: ZINC GLUCONATE 50 MG TABLET PO SCH (09:06)
[2020-11-01] MEDS: PANTOPRAZOLE 40 MG TABLET PO SCH (09:07)
[2020-11-01] MEDS: DULoxetine 30 MG CAPSULE PO SCH (09:07)
[2020-11-01] MEDS: CHOLECALCIFEROL 5,000 UNIT TABLET PO SCH (09:07)
[2020-11-01] MEDS: TRIAMTERENE/HCTZ 37.5-25 MG CAPSULE PO SCH ×2 (09:07→21:44)
[2020-11-01] MEDS: allopurinoL 100 MG TABLET PO SCH ×2 (09:08→21:37)
[2020-11-01] MEDS: DOCUSATE SODIUM 100 MG CAPSULE PO SCH ×2 (09:08→21:38)
[2020-11-01] MEDS: SPIRONOLACTONE 25 MG TABLET PO SCH (09:08)
[2020-11-01] MEDS: FERROUS SULFATE 325 MG TABLET PO SCH ×2 (09:08→21:37)
[2020-11-01] MEDS: FOLIC ACID 1 MG TABLET PO SCH (09:08)
[2020-11-01] MEDS: APIXABAN 2.5 MG TABLET PO SCH ×2 (09:08→21:37)
[2020-11-01] MEDS: CLINDAMYCIN 150 MG CAPSULE PO SCH ×3 (09:09→21:36)
[2020-11-01] MEDS: ASCORBIC ACID 500 MG TABLET PO SCH (09:09)
[2020-11-01] MEDS: POTASSIUM CHLORIDE 20 MEQ TABLET PO SCH ×2 (09:09→21:37)
[2020-11-01] MEDS: MELOXICAM 7.5 MG TABLET PO SCH (09:15)
[2020-11-01] MEDS: CHLORHEXIDINE 0.12% ORAL RINSE 60 ML BOTTLE SWISH/SPIT SCH ×2 (09:16→21:38)
[2020-11-01] MEDS: DOXYCYCLINE HYCLATE 100 MG CAPSULE PO SCH ×2 (11:24→21:35)
[2020-11-01] MEDS: traMADol 50 MG TABLET PO PRN (16:22)
[2020-11-01] MEDS: GABAPENTIN 300 MG CAPSULE PO SCH (21:36)
[2020-11-01] MEDS: MORPHINE 2 MG/1 ML SYRINGE IV PRN (23:58)
[2020-11-02] MEDS: DEXAMETHASONE 4 MG/1 ML VIAL IV SCH ×3 (00:55→16:39)
[2020-11-02] MEDS: SPIRONOLACTONE 25 MG TABLET PO SCH (10:33)
[2020-11-02] MEDS: CLINDAMYCIN 150 MG CAPSULE PO SCH ×2 (10:36→15:50)
[2020-11-02] MEDS: DULoxetine 30 MG CAPSULE PO SCH (10:41)
[2020-11-02] MEDS: DOCUSATE SODIUM 100 MG CAPSULE PO SCH (10:41)
[2020-11-02] MEDS: TRIAMTERENE/HCTZ 37.5-25 MG CAPSULE PO SCH (10:41)
[2020-11-02] MEDS: APIXABAN 2.5 MG TABLET PO SCH (10:42)
[2020-11-02] MEDS: FLUDROCORTISONE 0.1 MG TABLET PO SCH (10:43)
[2020-11-02] MEDS: FOLIC ACID 1 MG TABLET PO SCH (10:43)
[2020-11-02] MEDS: FERROUS SULFATE 325 MG TABLET PO SCH (10:43)
[2020-11-02] MEDS: POTASSIUM CHLORIDE 20 MEQ TABLET PO SCH (10:44)
[2020-11-02] MEDS: MELOXICAM 7.5 MG TABLET PO SCH (10:44)
[2020-11-02] MEDS: CHLORHEXIDINE 0.12% ORAL RINSE 60 ML BOTTLE SWISH/SPIT SCH (10:44)
[2020-11-02] MEDS: CHOLECALCIFEROL 5,000 UNIT TABLET PO SCH (10:45)
[2020-11-02] MEDS: ASCORBIC ACID 500 MG TABLET PO SCH (10:45)
[2020-11-02] MEDS: DOXYCYCLINE HYCLATE 100 MG CAPSULE PO SCH (10:45)
[2020-11-02] MEDS: PANTOPRAZOLE 40 MG TABLET PO SCH (10:45)
[2020-11-02] MEDS: allopurinoL 100 MG TABLET PO SCH (10:46)
[2020-11-02] MEDS: ZINC GLUCONATE 50 MG TABLET PO SCH (10:46)
[2020-11-02 16:21] VITALS: BP 113/43
== END 2020-11-02 18:45 | disposition swing bed (61) | DRG 158 ==
LOC: N.ED 15:30 → N.EDINP 15:30 → SUATTDRO 20:05 → N.EDINP 22:07 → N.TELES 22:56 → SUATTDRO 10-27 09:05
PROVIDERS: ADMIT Internal Medicine; ATTEND Hospitalist